=== PATIENT | female | born 2005 | race Caucasian/White ===

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

== ENCOUNTER 2025-02-01 09:19 | Outpatient (CLI) | payer BC, SELFPAY | END 2025-02-01 09:20 | disposition home or self-care (01) | PROVIDERS: PCP Physician Assistant Medical; Visit Provider Physician Assistant | DX: N64.52 Nipple discharge (principal) | CPT/HCPCS: 84146 ==

== ENCOUNTER 2025-02-12 09:05 | Outpatient (CLI) | payer BC, SELFPAY ==
--- NOTE | 2025-02-12 09:15 | CRLHL7_ITS ---
For Patients: As a result of the Century Cures Act, medical imaging exams and procedure reports are released immediately into your electronic medical record. You may view this report before your referring provider. If you have questions, please contact your health care provider. RIGHT BREAST ULTRASOUND CLINICAL HISTORY: RIGHT breast nipple discharge. COMPARISON: Ultrasound 12/14/2021. TECHNIQUE: Real-time ultrasound imaging of RIGHT breast with imaging documentation. FINDINGS: Targeted sonogram performed in the retroareolar region extending to 6 o`clock 1 cm from the nipple. Normal subareolar ducts are present without singular duct ectasia or intraductal nodule. No solid mass. IMPRESSION: No suspicious findings. No evidence of papilloma. RECOMMENDATIONS: Clinical follow-up. Results and recommendations were discussed with the patient at the time of the exam. A lay language report of this examination will be provided to the patient. BI-RADS Category 2 Benign Dictated by Juan Austin MD @ 02/12/2025 11:09:36 AM/CRL:torrie ANDREWS/Dictated by: Juan Austin MD @ 02/12/2025 11:09:00 AM (Electronically Signed)
== END 2025-02-12 09:06 | disposition home or self-care (01) ==
LOC: US 09:05
PROVIDERS: PCP Physician Assistant Medical; Visit Provider Physician Assistant
DX: N64.52 Nipple discharge (principal)
CPT/HCPCS: 76642

== ENCOUNTER 2025-03-22 09:55 | Outpatient (CLI) | payer BC, SELFPAY | END 2025-03-22 09:56 | disposition home or self-care (01) | PROVIDERS: PCP Physician Assistant Medical | DX: N64.52 Nipple discharge (principal); R53.83 Other fatigue; Z11.8 Encounter for screening for other infectious and parasitic diseases | CPT/HCPCS: 80053; 84443; 86618; 87070 ==

== ENCOUNTER 2025-03-29 07:08 | Outpatient (CLI) | payer BC, SELFPAY ==
--- NOTE | 2025-03-29 07:15 | CRLHL7_ITS ---
For Patients: As a result of the Century Cures Act, medical imaging exams and procedure reports are released immediately into your electronic medical record. You may view this report before your referring provider. If you have questions, please contact your health care provider. BILATERAL BREAST MRI WITHOUT AND WITH GADOLINIUM CLINICAL HISTORY: 20-year-old female RIGHT nipple discharge. INDICATION FOR BREAST MRI: Problem-solving breast MRI. COMPARISON STUDIES: RIGHT breast ultrasound 02/12/2025. CONTRAST: 15 mL Dotarem IV. TECHNIQUE: The patient was positioned prone using a breast coil. Multiple imaging sequences were obtained using 1-1.5 mm thick slices with no gap. The image sequences include T2-weighted STIR in the axial plane, T1-weighted nonfat-saturated gradient echo in the axial plane, pre- and post-contrast T1-weighted FLASH 3D with fat suppression in the axial plane, and T1-weighted FLASH high resolution 3D with fat suppression in the sagittal plane. Image post-processing was performed on a [employer] workstation. Complex 3D rendering including maximum intensity projections (MIPS) and volumetric renderings were obtained to optimize visualization of the extent of pathology and relationship to the nipple, skin, and chest wall. This aids in determining feasibility of breast conservation surgery. Subtraction, multiplanar reconstruction, mean curve determination, and angiogenesis mapping were also performed. The study was technically adequate. FINDINGS: Amount of Fibroglandular Tissue: Heterogeneous fibroglandular tissue. Breast Background Enhancement: Marked. RIGHT Breast: No suspicious areas of enhancement. LEFT Breast: No suspicious areas of enhancement. Lymph Nodes: No adenopathy. IMPRESSIONS AND RECOMMENDATIONS: Negative, there is no MR evidence of malignancy or other abnormality to explain nipple discharge. Clinical follow-up is recommended. Annual screening mammography to begin based on patient age and risk factors. BI-RADS Category 1: Negative Dictated by Tika Ordoñez MD @ 04/01/2025 1:42:58 PM /sp SP/Dictated by: Tika Ordoñez MD @ 04/01/2025 2:08:00 PM (Electronically Signed)
== END 2025-03-29 07:09 | disposition home or self-care (01) ==
LOC: MRI 07:09
PROVIDERS: PCP Physician Assistant Medical; Visit Provider Surgery
DX: N64.52 Nipple discharge (principal)
CPT/HCPCS: 77049; A9575

== ENCOUNTER 2025-08-15 10:29 | Emergency (ER) | payer BC, SELFPAY ==
[2025-08-15] VITALS (16 sets, daily range): BP systolic 97–120; BP diastolic 59–75; PULSE 78–115; RESP 17–20; TEMP 36.1; O2SAT 95–100; BMI 23.8
--- OUTSIDE RECORDS SUMMARY | 2025-08-15 10:35 | XMS_ITS | Clinical Summary ---
Author Organization [place] Address [address] [place] [id number] Care Team Providers Care Funeral Service Practitioner/Embalmer Name Role Phone Jesusnovember Primary Care Provider [phone] Allergies Active AllergyReactionsCriticalityNoted TtlvWgygldomTqwv72/29/2013udesonide 03/26/2013 Medications MedicationSigDispense QuantityRefillsLast FilledStart DateEnd DateStatus ALBUTEROL SULFATE 0.083 % IN NEBU Indications:Acute bronchitisuse in nebulizer q 4-6 hours prn 1 box ctive EPINEPHrine (EPIPEN 2-CALISTA IJ) Inject as directed.Active silver sulfADIAZINE (SILVADENE) 1 % external cream Indications:Foot pain, bilateral,Ingrown nail of great toe of right foot,Ingrown nail of great toe of left footApply topically 2 times daily Applied to both great toes after soaking 25 g Active Active Problems ProblemNoted DateDiagnosed DateOverweight (BMI 25.0-29.9)03/26/2013Esophageal wnbgyo2702/12/2005 Immunizations ImmunizationAdministration DatesNext DueDTaP/HepB/IPV2005,2005, 2005HIB (PRP-T)2005,2005,2005Influenza (IIV3) PF 10/07/2006,2005MMR (MMRII)02/09/2006Pneumococcal (PCV 7)02/09/2006, 2005,2005,2005Varicella (Varivax)02/09/2006 Family History Medical HistoryRelationCommentsC.A.D.No family hx ofDiabetesNo family hx of HypertensionNo family hx ofRelationStatusCommentsFatherAliveMaternal Grandfather AliveMaternal GrandmotherAliveMotherAlivePaternal GrandfatherAlivePaternal GrandmotherAliveSisterAlive Social History Tobacco UseTypesPacks/DayYears UsedDateSmoking Tobacco: NeverSmokeless Tobacco: Never Tobacco Cessation:Counseling Given: No Comments:non smoking home Alcohol UseStandard Drinks/WeekCommentsNot Asked0 (1 standard drink = 0.6 oz pure alcohol)CommentsUnknownSex and Gender InformationValueDate Recorded Sex Assigned at BirthNot on fileLegal VdyMrehpl21/04/2012 4:37 AM CSTGender IdentityNot on fileSexual OrientationNot on file Last Filed Vital Signs Vital SignReadingTime TakenCommentsBlood Yubzouxb532/62003/13/2020 8:48 AM CDT Rnwvr267803/26/2013 11:09 AM LNWBcpstdrruzw60.4 ??C (101.2 ??F)09/19/2006 1:15 PM CSTRespiratory Dudp917309/19/2006 1:15 PM CSTOxygen Gzfdjvzabg712%06/16/2006 9:45 AM CDTInhaled Oxygen Concentration--Trxbfg58.9 kg (152 lb)03/13/2020 8:48 AM CDT Hiovut501.5 cm (5' 2)03/13/2020 8:48 AM CDTBody Mass Index27.807 8:48 AM CDT Plan of Treatment Not on file Care Teams Team MemberRelationshipSpecialtyStart DateEnd Date November PCP - General03/12/13
[2025-08-15 10:45] LABS: Glucose, Point-of-Care* 48 mg/dl (60-115)
--- NOTE | 2025-08-15 10:50 | ED_ITS ---
HPI - General Adult General Date Seen: 08/15/25 Chief complaint: Unspecified Complaint, Adult Stated complaint: Yellowing eyes, glucose lvl low. Time Seen by Provider: 08/15/25 10:50 Source: patient and RN notes reviewed Mode of arrival: ambulatory Limitations: no limitations History of Present Illness HPI narrative: Sudhir is a very pleasant 20-year-old female who states that she has a history non alcoholic fatty liver, jaundice, and has recently restarted her G LP 1 medications 2 weeks ago who comes to the emergency room reporting weakness, low blood sugar and not feeling well. Patient states she started her medication 2 weeks ago. She had been without it for a few months. She notes that she had been on it a total of a year previously with no problems. Yesterday she felt weak and tired. No other fever chills or cough. Last evening she had a 1/2 hour of intense left lower quadrant pain that she thought may be a ovarian cyst. No pain is present today. She denies a history of kidney stones. She notes that she has known insulin resistance but has never had low blood sugar in the past. Notes that she has decreased her food intake but she is certainly not completely discontinued it. Today it was reported that she was not feeling well and EMS was summoned. They noted a blood sugar 60 and she was given some juice and her blood sugar went up to 72. She comes into the emergency room nursing staff tells me that her blood sugar is now 48. Patient also notes that her eyes appeared to be yellow and her she has some yellowish discoloration on her hands. She denies a history of drinking but states that last weekend she drank alcohol. Significant other present very loving and supportive. Denies a possibility of . Patient notes a 13 lb weight loss over the past week. Related Data Previous Rx's ?Medication ?Instructions ?Recorded hydroxyzine HCl 25 mg tablet 25 mg PO TID PRN anxiety #60 tabs 12/18/24 epinephrine 0.3 mg/0.3 mL 0.3 mg (0.3 mL) IM ONCE #2 e a 02/14/25 injection, auto-injector escitalopram oxalate 20 mg tablet 20 mg PO QDAY #90 ta bs 02/14/25 Allergies Allergy/AdvReac Type Severity Reaction Status Date / Time bee venom protein (honey bee) Allergy Mild Verified 03/22/25 08:51 Review of Systems Status of ROS: Reports: 10 or more systems reviewed and unremarkable except as noted in History and below Const: Reports: fatigue; Denies: fever or chills Eyes: Denies: change in vision or blurry vision ENMT: Denies: throat pain, neck pain, throat swelling or nasal congestion Cardio: Reports: lightheadedness; Denies: chest pain, swelling of feet/ankles or shortness of breath with exertion Resp: Denies: shortness of breath, cough or wheezing GI: Reports: abdominal pain, nausea and vomiting; Denies: diarrhea : Denies: painful urination, urinary frequency or urinary urgency Musculo: Denies: back pain, neck pain or extremity pain Integ/Breast: Reports: rash Neuro: Denies: headache Endo: Reports: fatigue Allergy/Immuno: Denies: throat swelling or wheezing PFSH PFS Medical History (Updated 08/15/25 @ 15:21 by Melanie Dumont MD) Nipple discharge ?N64.52 - Nipple discharge (ICD-10) Pyelonephritis ?N12 - Tubulo-interstitial nephritis, not specified as acute or chronic (ICD- 10) Family History (Updated 02/01/25 @ 09:40 by Sandra Linton PA-C) Grandmother Pancreatic cancer Father High blood pressure Social History Smoking Status: Never smoker Do you use any of these nicotine containing products: Vaping Products How often do you have a drink containing alcohol: monthly or less AUDIT-C Alcohol total score: 1 Non-prescribed substance use: denies use service: No Exam Narrative: Exam Narrative: Patient is alert and oriented. She does have some slight jaundice of her eyes. Her hands are somewhat yellow as well better otherwise her skin is normal. Her EOM is full and pupils are equal round reactive. Head is atraumatic normocephalic. Mentation and speech is normal. Oral cavity with moist mucous membranes. Neck is supple without lymphadenopathy. Heart with tachycardic rate and normal rhythm. Lungs are clear bilaterally. Abdomen is soft nontender. No pain with palpation left lower quadrant. No CVA tenderness with percussion. Moving extremities without difficulty. Const: Vital Signs, click to edit/add: Vital Signs - 24 hr 08/15/25 10:33 12/18/25 10:53 08/15/25 11:02 Temperature 96.9 F L Pulse Rate 97 100 Pulse Rate [Pulse Oximeter] 106 H Respiratory Rate 20 Blood Pressure 109/71 105/72 Blood Pressure [Ri ght Upper Arm] 120/75 Pulse Oximetry 99 100 100 Oxygen Delivery Me thod Room Air 08/15/25 11:03 08/15/25 11:34 08/15/25 11:35 Temperature Pulse Rate 95 115 H 104 H Pulse Rate [Pulse Oximeter] Respiratory Rate Blood Pressure 117/70 Blood Pressure [Ri ght Upper Arm] Pulse Oximetry 99 97 95 Oxygen Delivery Me thod 08/15/25 11:45 08/15/25 12:00 08/15/25 12:02 Temperature Pulse Rate 99 90 90 Pulse Rate [Pulse Oximeter] Respiratory Rate 18 Blood Pressure 97/67 Blood Pressure [Ri ght Upper Arm] Pulse Oximetry 100 99 100 Oxygen Delivery Me thod 08/15/25 12:31 08/15/25 13:56 08/15/25 14:01 Temperature Pulse Rate 102 H 78 Pulse Rate [Pulse Oximeter] 87 Respiratory Rate 18 Blood Pressure 105/72 98/61 Blood Pressure [Ri ght Upper Arm] 104/59 L Pulse Oximetry 100 99 100 Oxygen Delivery Me thod Room Air 08/15/25 14:02 08/15/25 14:31 08/15/25 14:46 Temperature Pulse Rate 88 93 82 Pulse Rate [Pulse Oximeter] Respiratory Rate 17 18 Blood Pressure 104/59 L 108/71 102/67 Blood Pressure [Ri ght Upper Arm] Pulse Oximetry 100 99 100 Oxygen Delivery Me thod 08/15/25 15:17 Temperature Pulse Rate 91 Pulse Rate [Pulse Oximeter] Respiratory Rate Blood Pressure 111/68 Blood Pressure [Ri ght Upper Arm] Pulse Oximetry 100 Oxygen Delivery Me thod Documenting provider has reviewed patient's vital signs: yes Course Course ED Course: Differential diagnosis includes but is not limited to liver failure, viral illness, UTI, , G LP effects. She is hypoglycemic today has been reducing her food intake but is not completely abstinent of food. At this time she is nauseated unable to take p.o.. Will give her 200 mL of D10 solution for a total of 20 g. Will monitor her blood sugars. Will also need to check CBC, comprehensive panel, direct bilirubin, urinalysis. Would also check pelvic ultrasound for evaluation of the left lower quadrant pain. Reevaluation(s) Reevaluation #1: Patient blood sugar improved to 134. Currently awaiting additional studies. Reevaluation #2: Patient notes that she is feeling much better. I have informed her of her elevated bilirubin. Her lipase has come back normal. She is hungry but avascular to hold off at this time as I have ordered an ultrasound of the right upper quadrant. Patient goes on to tell me about being diagnosed with fatty liver 2 years ago when she was in [place]. She thought she had norovirus with vomiting and diarrhea and was found that she had markedly elevated liver enzymes. I did ask her if she was tested for hepatitis and she does not think so. Have added hepatitis panel today. Her triple swab is negative, alcohol is negative, CRP within normal limits. Patient currently on Zepbound. It can be associated with hypoglycemia, pancreatitis, jaundice. Reevaluation #3: Patient noted to have ultrasound that showed diffuse inflammation. I was able to speak to the radiologist wondering if I needed to do further imaging with MRI or CT. At this time they do not think so as they think this is most likely hepatitis. I had sent out an acute hepatitis panel, will add EBV, CMV and HIV. Currently awaiting discussion with GI specialist from [place]. 4+ urinary ketones noted will give 2 L of normal saline. Consultations Consultation #1: I did consult with Dr. Gamble, hospitalist in regards to this patient. Does recommend ultrasound if lipase negative, CT of lipase positive as G LP is have been known to cause pancreatitis. Consultation #2: I was able to consult with Dr. Patel, physician with [facility]. We were able to go over patient's labs. He does agree with sending out additional studies and I have added a cm be EBV and an HIV. At this time suggest follow-up with [facility] for further evaluation. Vital Signs Vital signs: Initial Vital Signs Temperature 96.9 F L 08/15/25 10:33 Temperature Source Temporal Artery Scan 08/15/25 10:33 Pulse Rate 106 H 08/15/25 10:33 Respiratory Rate 20 08/15/25 10:33 Blood Pressure 120/75 08/15/25 10:33 Blood Pressure Mean 90 08/15/25 10:33 Blood Pressure Position Sitting 08/15/25 10:33 Pulse Oximetry 99 08/15/25 10:33 Oxygen Delivery Method Room Air 08/15/25 10:33 Vital Signs Temperature 96.9 F L 08/15/25 10:33 Pulse Rate 106 H 08/15/25 10:33 Respiratory Rate 20 08/15/25 10:33 Blood Pressure 120/75 08/15/25 10:33 Pulse Oximetry 99 08/15/25 10:33 Oxygen Delivery Method Room Air 08/15/25 10:33 Temperature 96.9 F L 08/15/25 10:33 Pulse Rate 91 08/15/25 15:17 Respiratory Rate 18 08/15/25 14:46 Blood Pressure 111/68 08/15/25 15:17 Pulse Oximetry 100 08/15/25 15:17 Oxygen Delivery Method Room Air 08/15/25 14:01 Medications Administered Medications: Discontinued Medications Generic Name Dose Route Start Last Admin Trade Name Freq PRN Reason Stop Dose Admin Dextrose 250 mls @ 200 mls/hr 08/15/25 10:54 08/15/25 12:25 10 % Dextrose 500 Ml IV 08/15/25 12:08 Infused .Q1H15M ONE Infusion Sodium Chloride 1,000 mls @ 1,000 mls/hr 08/15/25 10:56 08/15/25 12:27 0.9 % Sodium Chloride 1000 Ml IV 08/15/25 11:55 Infused .Q1H IFRAH Infusion Sodium Chloride 1,000 mls @ 1,000 mls/hr 08/15/25 11:54 08/15/25 13:58 0.9 % Sodium Chloride 1000 Ml IV 08/15/25 12:53 Infused .Q1H IFRAH Infusion Sodium Chloride 1,000 mls @ 1,000 mls/hr 08/15/25 13:52 08/15/25 15:24 0.9 % Sodium Chloride 1000 Ml IV 08/15/25 14:51 Infused .Q1H IFRAH Infusion Medical Decision Making MDM Narrative Medical decision making narrative: 1. Hypoglycemia -resolved with D10 200 mL. This is likely is side effect of the G LP 1. This is not prescribed to patient but she did obtain it from a family friend for weight loss purposes. She does endorse decreased p.o. intake. Likely secondary to this medicine. Her blood sugar immediately improved with D10 given in the ED. patient was able to eat and states she is feeling much better. I would like her to discontinue the Zepbound at this time. Would like her to eat many small meals throughout the day. 2. Hepatitis-hep a acute panel is a send out. CRP is normal. Patient has no history of autoimmune. She was told she had fatty liver 2 years ago after episode of vomiting and diarrhea associated with elevated liver function tests. She does not recall being tested for hepatitis. Her ultrasound is suggestive of hepatitis but her liver function tests with the exception of bilirubin are reassuring. She is jaundice. GI specialists suggest possibility of Gilbert's syndrome but ultrasound definitely shows diffuse inflammation. At this time recommend avoiding Tylenol, all forms of alcohol. 3. Abdominal pain -30 minutes of intense left lower quadrant pain last night. Patient does have a history of ovarian cyst. Pelvic ultrasound negative for acute findings. 4. Weakness with ketonuria-likely from combination of hepatitis, dehydration. She is feeling much better after 2 L IV fluids and eating. Patient does have a history of pyelonephritis in the past. Consequently even with the reassuring urine I have ordered a urine culture. 5. Disposition - home at this time. Recommend follow-up with [facility] in the next week. Phone numbers given for the appointment desk. Return to the ER for worsening symptoms. Medical Records Medical records reviewed: Yes I reviewed the patient's medical records Lab Data Lab results reviewed: Yes I reviewed the patient's lab results Labs: Lab Results 08/15/25 08/15/25 08/15/25 Range/Units 10:40 10:44 10:53 WBC 7.05 (4.50-11.00) K/uL RBC 4.89 (4.00-5.20) m/uL Hgb 14.1 (12.0-16.0) gm/dL Hct 43.0 (33.0-51.0) % MCV 88 (80-100) fL MCH 29 (26-34) pg MCHC 33 (32-36) gm/dL RDW Coeff of Kaleb 11.5 (11.5-15.5) % Plt Count 309 (140-440) K/uL Neut % (Auto) 81.6 H (42.0-72.0) % Lymph % (Auto) 13.9 L (20-44) % Cascade % (Auto) 3.4 (0.0-11.0) % Eos % (Auto) 0.4 (0.0-7.0) % Baso % (Auto) 0.6 (0.0-3.0) % Neut # (Auto) 5.80 (1.7-7.0) K/uL Lymph # (Auto) 1.00 (0.90-2.90) K/uL Cascade # (Auto) 0.20 (0.00-0.90) K/UL Eos # (Auto) 0.03 (0.00-0.50) K/uL Baso # (Auto) 0.04 (0.00-0.30) K/uL Abs Immat Gran (auto) 0.01 (0.00-0.30) K/uL Imm/Tot Granulo (auto) 0.1 % Sodium 136 (135-149) mmol/L Potassium 3.7 (3.6-5.1) mmol/L Chloride 102 (96-114) mmol/L Carbon Dioxide 19 L (20-32) mmol/L Anion Gap 15 (7-15) mEq/L BUN 21 (5-24) mg/dL Creatinine 0.6 (0.5-1.5) mg/dL Estimated Creat Clear 118.29 Estimated GFR 132 ml/min Glucose 57 L (60-115) mg/dL Calcium 9.1 (8.4-10.6) mg/dL Magnesium 2.1 (1.5-2.6) mg/dL Total Bilirubin 4.4 H (0.1-1.5) mg/dL Direct Bilirubin 0.7 H (0.0-0.5) mg/dL AST 29 (12-35) U/L ALT 19 (4-35) U/L Alkaline Phosphatase 77 (40-150) U/L C-Reactive Protein < 0.5 L (0.5-1.0) mg/dL Total Protein 8.0 (6.0-8.3) g/dL Albumin 5.1 H (3.3-5.0) g/dL Lipase 61 (23-300) U/L Urine Color Yellow (Yellow) Urine Appearance Clear (Clear) Urine pH 5.5 (5.0-8.5) Ur Specific Weatherford 1.025 (1.000-1.030) Urine Protein Negative (Negative) Urine Glucose (UA) Negative (Negative) Urine Ketones 4+ A (Negative) Urine Blood Negative (Negative) Urine Nitrite Negative (Negative) Urine Bilirubin Negative (Negative) Urine Urobilinogen 0.2 (0.2-1.0) Ur Leukocyte Esterase Negative (Negative) Urine RBC 0-2 (0-2) Urine WBC 0-2 (0-5) Ur Squamous Epith Cells Few (None-Few) Urine Bacteria None (None) Urine HCG, Qual Negative (Negative) Ethyl Alcohol < 0.01 (0.01-0.03) % SARS-CoV-2 (PCR) Negative SARS-CoV-2 (Negative) Influenza Type A (PCR) Negative PCR FLU A (Negative) Influenza Type B (PCR) Negative PCR FLU B (Negative) RSV (PCR) Negative PCR RSV (Negative) Lab Acknowledgement Test Added POC Glucose 48 L* (60-115) mg/dl 08/15/25 08/15/25 08/15/25 Range/Units 11:10 12:07 12:41 WBC (4.50-11.00) K/uL RBC (4.00-5.20) m/uL Hgb (12.0-16.0) gm/dL Hct (33.0-51.0) % MCV (80-100) fL MCH (26-34) pg MCHC (32-36) gm/dL RDW Coeff of Kaleb (11.5-15.5) % Plt Count (140-440) K/uL Neut % (Auto) (42.0-72.0) % Lymph % (Auto) (20-44) % Cascade % (Auto) (0.0-11.0) % Eos % (Auto) (0.0-7.0) % Baso % (Auto) (0.0-3.0) % Neut # (Auto) (1.7-7.0) K/uL Lymph # (Auto) (0.90-2.90) K/uL Cascade # (Auto) (0.00-0.90) K/UL Eos # (Auto) (0.00-0.50) K/uL Baso # (Auto) (0.00-0.30) K/uL Abs Immat Gran (auto) (0.00-0.30) K/uL Imm/Tot Granulo (auto) % Sodium (135-149) mmol/L Potassium (3.6-5.1) mmol/L Chloride (96-114) mmol/L Carbon Dioxide (20-32) mmol/L Anion Gap (7-15) mEq/L BUN (5-24) mg/dL Creatinine (0.5-1.5) mg/dL Estimated Creat Clear Estimated GFR ml/min Glucose (60-115) mg/dL Calcium (8.4-10.6) mg/dL Magnesium (1.5-2.6) mg/dL Total Bilirubin (0.1-1.5) mg/dL Direct Bilirubin (0.0-0.5) mg/dL AST (12-35) U/L ALT (4-35) U/L Alkaline Phosphatase (40-150) U/L C-Reactive Protein (0.5-1.0) mg/dL Total Protein (6.0-8.3) g/dL Albumin (3.3-5.0) g/dL Lipase (23-300) U/L Urine Color (Yellow) Urine Appearance (Clear) Urine pH (5.0-8.5) Ur Specific [place] (1.000-1.030) Urine Protein (Negative) Urine Glucose (UA) (Negative) Urine Ketones (Negative) Urine Blood (Negative) Urine Nitrite (Negative) Urine Bilirubin (Negative) Urine Urobilinogen (0.2-1.0) Ur Leukocyte Esterase (Negative) Urine RBC (0-2) Urine WBC (0-5) Ur Squamous Epith Cells (None-Few) Urine Bacteria (None) Urine HCG, Qual (Negative) Ethyl Alcohol (0.01-0.03) % SARS-CoV-2 (PCR) (Negative) Influenza Type A (PCR) (Negative) Influenza Type B (PCR) (Negative) RSV (PCR) (Negative) Lab Acknowledgement Test Added Test Added POC Glucose 134 H (60-115) mg/dl Imaging Data US - abdomen: Attestation: I have reviewed the pertinent imaging results. Radiologist's impression: Reported last menstrual period: Not provided. The uterus is anteverted and measures 7.9 x 3.9 x 5.0 cm. No uterine masses. The endometrial stripe measures 0.5 cm in double thickness. No endometrial masses. The cervix sonographically unremarkable. The right ovary measures 4.6 x 2.2 x 3.2 cm. Numerous follicles. No dominant or worrisome cyst. No solid mass. There is normal arterial and venous color Doppler flow and normal arterial and venous waveforms on duplex Doppler. The left ovary measures 4.8 x 2.6 x 2.7 cm. Numerous follicles. No dominant or worrisome cyst. No solid mass. There is normal arterial and venous color Doppler flow and normal arterial and venous waveforms on duplex Doppler. No free fluid. IMPRESSION: Normal pelvic ultrasound. Right upper quadrant ultrasound: Attestation: I have reviewed the pertinent imaging results. Radiologist's impression: Liver: ?Starry sharonda ? appearance consistent with diffuse inflammation or infiltration often seen with hepatitis, other infections, CHF or diffuse malignancy. Portal vein: 0.7 cm. 18.2 cm/second Gallbladder: No stones or sludge. Normal wall thickness. No pericholecystic fluid. Common bile duct: 3 mm. Pancreas: Obscured by bowel gas. Right kidney: 10.9 x 5.1 x 4.9 cm. Cortex: 1.0 cm. Normal echotexture and cortex. No suspicious masses, stones, or hydronephrosis. Vasculature: Proximal abdominal aorta and IVC are normal. IMPRESSION: 1. ?Starry sharonda ? appearance consistent with diffuse inflammation or infiltration often seen with hepatitis, other infections, CHF or diffuse malignancy. 2. No gallstones or biliary dilation. Unremarkable right upper quadrant ultrasou Critical Care Time Critical Care Time Critical Care Time: Yes Attestation: The patient required my highest level preparedness to intervene emergently and I personally spent this critical care time directly and personally managing the patient. This critical care time included: Obtaining a history; Examining the patient; Pulse oximetry; Ordering and reviewing of studies; Arranging urgent treatment with development of a management plan; Evaluation of patients response to treatment; Frequent reassessment discussions with other providers. This critical care time was performed to assess and manage the high probability of imminent life-threatening deterioration that could result in multiorgan failure. It was exclusive of separate billable procedures and treating other patients and teaching time. Total Critical Care Time in Minutes: 30 Discharge Plan Discharge Clinical Impression: Hepatitis, Hypoglycemia, Weakness Patient Disposition: Home, Self-Care Condition: Improved Additional Instructions: Please stop your Tirzepatide. Push fluids. We no alcohol. A follow-up with [facility]-they have many facilities throughout the [facility]. The phone number to call is [phone]. This is the general number. Please book at clinics of your choice. There are clinics in [facility]. Return to the ER for worsening symptoms. Eat wholesome meals with snacks. Return to the emergency room for recurrence or worsening symptoms. Prescriptions: No Action hydroxyzine HCl 25 mg tablet 25 mg PO TID PRN (Reason: anxiety) Qty: 60 0RF escitalopram oxalate 20 mg tablet 20 mg PO QDAY Qty: 90 1RF epinephrine 0.3 mg/0.3 mL auto-injector 0.3 mg IM ONCE Qty: 2 2RF Rx Instructions: as a single dose; may repeat once Follow Up/Referrals: Elizabeth Murillo PA-C [Primary Care Provider, Family Practice] Stand Alone Forms: [employer] Info Instructions
--- NOTE | 2025-08-15 10:53 | CRLHL7_ITS ---
For Patients: As a result of the Century Cures Act, medical imaging exams and procedure reports are released immediately into your electronic medical record. You may view this report before your referring provider. If you have questions, please contact your health care provider. INDICATION: Left lower quadrant pain, history of ovarian cyst COMPARISON: None. TECHNIQUE: Transvaginal: Ortiz-scale and color Doppler ultrasound of the uterus and ovaries from a transvaginal approach. Transvaginal ultrasound of the pelvis was performed to better visualize the genitourinary organs, such as the ovaries and/or endometrium. Color-flow and spectral Doppler imaging of both ovaries is performed. FINDINGS: Reported last menstrual period: Not provided. The uterus is anteverted and measures 7.9 x 3.9 x 5.0 cm. No uterine masses. The endometrial stripe measures 0.5 cm in double thickness. No endometrial masses. The cervix sonographically unremarkable. The right ovary measures 4.6 x 2.2 x 3.2 cm. Numerous follicles. No dominant or worrisome cyst. No solid mass. There is normal arterial and venous color Doppler flow and normal arterial and venous waveforms on duplex Doppler. The left ovary measures 4.8 x 2.6 x 2.7 cm. Numerous follicles. No dominant or worrisome cyst. No solid mass. There is normal arterial and venous color Doppler flow and normal arterial and venous waveforms on duplex Doppler. No free fluid. IMPRESSION: Normal pelvic ultrasound. Dictated by Alexandra Niño MD @ 08/15/2025 12:05:22 PM (Electronically Signed)
[2025-08-15] MEDS: 10 % DEXTROSE 500 ML 250 ML 200 ML IV (11:03)
[2025-08-15 11:10] LABS: Hematocrit* 43.0 % (33.0-51.0); Hemoglobin* 14.1 gm/dL (12.0-16.0); Immature Granulocytes Abs Auto 0.01 K/uL (0.00-0.30); Immature Granulocytes Pct Auto 0.1 %; Mean Corpuscular HGB Conc 33 gm/dL (32-36); Mean Corpuscular Hemoglobin 29 pg (26-34); Mean Corpuscular Volume 88 fL (80-100); RDW Coefficient of Variation % 11.5 % (11.5-15.5); Red Blood Count* 4.89 m/uL (4.00-5.20); White Blood Count* 7.05 K/uL (4.50-11.00)
[2025-08-15 11:12] LABS: Lymphocytes Absolute Auto 1.00 K/uL (0.90-2.90); Slide Review Reflex No
[2025-08-15 11:14] LABS: Glucose, Point-of-Care* 134 mg/dl (60-115)
[2025-08-15 11:19] LABS: Albumin* 5.1 g/dL (3.3-5.0); Chloride* 102 mmol/L (96-114); Sodium* 136 mmol/L (135-149)
[2025-08-15 11:20] LABS: Potassium* 3.7 mmol/L (3.6-5.1)
[2025-08-15 11:22] LABS: Blood Urea Nitrogen* 21 mg/dL (5-24); Creatinine* 0.6 mg/dL (0.5-1.5); Est. Creatinine Clearance* 118.29; Estimated Glomerular Filt Rate 132 ml/min
[2025-08-15 11:23] LABS: Alanine Aminotransferase* 19 U/L (4-35); Alkaline Phosphatase* 77 U/L (40-150); Anion Gap 15 mEq/L (7-15); Aspartate Amino Transferase* 29 U/L (12-35); Bilirubin Direct* 0.7 mg/dL (0.0-0.5); Bilirubin Total* 4.4 mg/dL (0.1-1.5); Calcium* 9.1 mg/dL (8.4-10.6); Carbon Dioxide* 19 mmol/L (20-32); Glucose* 57 mg/dL (60-115); Total Protein* 8.0 g/dL (6.0-8.3)
[2025-08-15 11:40] LABS: Ethanol* < 0.01 % (0.01-0.03)
[2025-08-15 11:43] LABS: PCR FLU A Negative PCR FLU A (Negative); PCR FLU B Negative PCR FLU B (Negative); PCR RSV Negative PCR RSV (Negative); SARS PCR* Negative SARS-CoV-2 (Negative)
--- NOTE | 2025-08-15 12:26 | CRLHL7_ITS ---
For Patients: As a result of the Cures Act, medical imaging exams and procedure reports are released immediately into your electronic medical record. You may view this report before your referring provider. If you have questions, please contact your health care provider. INDICATION: Jaundice. TECHNIQUE: Ultrasound abdomen limited. Sonographic images of the right upper quadrant were obtained using simons-scale and color Doppler images. COMPARISON: None FINDINGS: Liver: ???Starry sharonda ??? appearance consistent with diffuse inflammation or infiltration often seen with hepatitis, other infections, CHF or diffuse malignancy. Portal vein: 0.7 cm. 18.2 cm/second Gallbladder: No stones or sludge. Normal wall thickness. No pericholecystic fluid. Common bile duct: 3 mm. Pancreas: Obscured by bowel gas. Right kidney: 10.9 x 5.1 x 4.9 cm. Cortex: 1.0 cm. Normal echotexture and cortex. No suspicious masses, stones, or hydronephrosis. Vasculature: Proximal abdominal aorta and IVC are normal. IMPRESSION: 1. ???Starry sharonda ??? appearance consistent with diffuse inflammation or infiltration often seen with hepatitis, other infections, CHF or diffuse malignancy. 2. No gallstones or biliary dilation. Unremarkable right upper quadrant ultrasound. Dictated by Rod Moore MD @ 08/15/2025 1:45:03 PM (Electronically Signed)
[2025-08-15 13:24] LABS: Appearance Urine Clear (Clear)
[2025-08-15 13:44] LABS: Ur HCG Qualitative* Negative (Negative)
[2025-08-15 17:03] LABS: Lab Add On Test New Spec Needed
[2025-08-17 15:16] LABS: Hep B Surface Antigen Negative (Negative); Hep C Ab by CIA Interp Negative (Negative)
== END 2025-08-15 16:03 | disposition home or self-care (01) ==
PROVIDERS: Student in an Organized Health Care Education/Training Program; Emergency Provider Family Medicine; PCP Physician Assistant Medical
DX: K75.9 Inflammatory liver disease, unspecified (principal); E16.2 Hypoglycemia, unspecified; R53.1 Weakness; R10.32 Left lower quadrant pain; Z79.85 Long-term (current) use of injectable non-insulin antidiabetic drugs
CPT/HCPCS: 36415; 76705; 76830; 80053; 80074; 81001; 81025; 82077; 82248; 82947; 83690; 83735; 85025; 86140; 87040; 87086; 87631; 93976; 96361; 96365; 99285; 99291; J7030